=== PATIENT | male | born 1980 | race Caucasian/White ===

== ENCOUNTER 2024-02-23 20:16 | Observation (INO) ==
[2024-02-23 20:28] VITALS: BMI 30.4
--- NOTE | 2024-02-23 22:30 | DR.ABDMALE ---
HPI Time seen Time Seen by Provider: 02/23/24 22:29 PCP Primary Care Physician: Breonna Cordova Complaint Chief Complaint Doctors Comments: Patient has had epigastric and periumbilical abdominal pain x 2days,abdl distention.Patient presents because with worsening pain and n/v yesterday. Patient denies:fever,hematemesis,hematochezia,weakness,dizziness,back pain.Patient's Last meal was at lunch today. Chief Complaint:: Patient ambulatory in er with complaints of abdominal pain that started yesterday. Pt localizes pain to mid epigastric region. pt states he had 1 episode of nausea yesterday but denies vomiting. COVID-19 Coronavirus risk:travel/contact w/high risk person: No Has patient experienced Coronavirus symptoms: No Mode of arrival Mode of Arrival: Ambulatory Timing Onset of Chief Complaint: 02/22/24 PMH PMH Past Medical History: Yes Past Medical History: GERD, Hypertension and Kidney Stones Past Medical History Comment: ADHD Past Surgical History: No Family History History of Family Medical Conditions: Yes Family Medical History: Diabetes Mellitus and Hypertension Social History Does patient currently use any type of tobacco product: No Have you used tobacco products in the last 12 months: No Type of Tobacco Use: None Does any household member use tobacco: No Alcohol Use: Occasionally Do you use any recreational Drugs:: No Lives With: Family Lives Where: Home Travel Risk Coronavirus risk:travel/contact w/high risk person: No Has patient experienced Coronavirus symptoms: No Infectious screening Have you traveled outside the country in the last 6 months?: No Isolation: Standard ROS Review of Systems Constitutional: No Symptoms Reported Eyes: No Symptoms Reported ENTM: No Symptoms Reported Respiratoy: No Symptoms Reported Cardiovascular: No Symptoms Reported Gastrointestinal/Abdominal: Abdominal Pain (epigastric,periumbilical), Nausea and Vomiting Genitourinary: No Symptoms Reported Neurological: No Symptoms Reported Musculoskeletal: No Symptoms Reported Integumentary: No Symptoms Reported Hematologic/Lymphatic: No Symptoms Reported Endocrine: No Symptoms Reported Psychiatric: No Symptoms Reported All Other Systems: Reviewed and Negative PE Vital Signs Vital Signs: Temp Pulse Pulse Resp BP BP Pulse Ox 02/24/24 00:14 79 20 133/83 99 02/23/24 22:49 19 02/23/24 20:20 98.5 F 83 19 114/77 96 O2 Del Method 02/24/24 00:14 Room Air 02/23/24 22:49 02/23/24 20:20 Room Air General Limitations: No Limitations General Appearance: Alert and In No Apparent Distress Head Head Exam: Normal Inspection Eyes Eye exam: Normal Appearance ENT ENT Exam: Normal Exam Neck Neck Exam: Normal Inspection Chest Chest Inspection: Normal Inspection Respiratory Respiratory Exam: Normal Lung Sounds Bilat Respiratory Exam: Bilateral: Clear to Auscultation Cardiovascular Cardiovascular Exam: Regular Rate and Normal Rhythm Abdominal Exam Abdominal Exam: Distention, Guarding and Hypoactive Bowel Sounds Abdominal Tenderness: Epigastrium, Diffuse and Severe Rectal Rectal Exam: Deferred Back Back Exam: Normal Inspection Extremeties Extremities Exam: Normal Inspection Exam: Male: Deferred Neurologic Neurological Exam: Alert and Oriented X3 Psychiatric Psychiatric Exam: Normal Affect and Normal Mood Skin Skin Exam: Warm, Dry, Intact and Normal Color MDM Differential Diagnosis Differential Diagnosis: Appendicitis, Bowel Obstruction, Cholcystitis, Cholele thiasis, Diverticular disease, Inflammatory BD, Ischemic Bowel and Urinary tract infection COURSE Treatment Treatment: Patient has a partial small bowel obstruction per the radiologist.Iv access was intiated and Patient received Ns 1liter iv and morphine 2mg iv/zofran 4mg iv for pain. Patient has a wbc 14.9 and Patient will be given Zosyn 3.375g iv. Discussed case with Dr Martins who has accepted Patient to his service. Dr Mantilla will be consulted. ROR Labs Reviewed 02/23/24 22:50 02/23/24 22:50 Laboratory: WBC 14.9 X10^3/uL (3.6-10.0) H 02/23/24 22:50 RBC 5.06 X10^6/uL (4.7-6.0) 02/23/24 22:50 Hgb 15.2 g/dL (13.5-18.0) 02/23/24 22:50 Hct 45.2 % (42.0-54.0) 02/23/24 22:50 MCV 89.4 fL (80.0-100.0) 02/23/24 22:50 MCH 30.0 pg (27.0-34.0) 02/23/24 22:50 MCHC 33.6 g/dL (33.0-35.0) 02/23/24 22:50 RDW 14.9 % (11.6-16.5) 02/23/24 22:50 Plt Count 278 X10^3/uL (150.0-450.0) 02/23/24 22:50 MPV 8.2 fL (7.4-11.0) 02/23/24 22:50 Neut % (Auto) 78.4 % (42.0-75.0) H 02/23/24 22:50 Lymph % (Auto) 11.8 % (21.0-51.0) L 02/23/24 22:50 [place] % (Auto) 6.4 % (0.0-13.0) 02/23/24 22:50 Eos % (Auto) 3.1 % (0.9-2.9) H 02/23/24 22:50 Baso % (Auto) 0.3 % (0.2-1.0) 02/23/24 22:50 Neut # (Auto) 11.7 x10^3/uL (2.2-4.8) H 02/23/24 22:50 Lymph # (Auto) 1.8 X10^3/uL (1.3-2.9) 02/23/24 22:50 [place] # (Auto) 1.0 x10^3/uL (0.3-0.8) H 02/23/24 22:50 Eos # (Auto) 0.5 x10^3/uL (0.0-0.2) H 02/23/24 22:50 Baso # (Auto) 0.1 X10^3/uL (0.0-0.1) 02/23/24 22:50 Absolute Nucleated RBC 0.0 /100WBC 02/23/24 22:50 Sodium 134 mmol/L (136-145) L 02/23/24 22:50 Corrected Sodium TNP 02/23/24 22:50 Potassium 3.8 mmol/L (3.5-5.1) 02/23/24 22:50 Chloride 99 mmol/L (98-107) 02/23/24 22:50 Carbon Dioxide 30.6 mmol/L (21-32) 02/23/24 22:50 BUN 15 mg/dL (7-18) 02/23/24 22:50 Creatinine 1.35 mg/dL (0.70-1.30) H 02/23/24 22:50 Est GFR (MDRD) Af Amer > 60 (>60) 02/23/24 22:50 Est GFR (MDRD) Non-Af > 60 (>60) 02/23/24 22:50 Glucose 100 mg/dL (65-99) H 02/23/24 22:50 Lactic Acid 0.8 mmol/L (0.4-2.0) 02/23/24 22:59 Calcium 8.4 mg/dL (8.5-10.1) L 02/23/24 22:50 Corrected Calcium TNP 02/23/24 22:50 Total Bilirubin 0.80 mg/dL (0.2-1.0) 02/23/24 22:50 AST 16 Units/L (15-37) 02/23/24 22:50 ALT 34 Units/L (12-78) 02/23/24 22:50 Alkaline Phosphatase 84 Units/L (46-116) 02/23/24 22:50 Total Protein 7.3 g/dL (6.4-8.2) 02/23/24 22:50 Albumin 3.7 g/dL (3.4-5.0) 02/23/24 22:50 Globulin 3.6 g/dL (2.5-4.5) 02/23/24 22:50 Albumin/Globulin Ratio 1.0 Ratio (1.1-2.1) L 02/23/24 22:50 Amylase 48 Units/L (25-115) 02/23/24 22:50 Lipase 44 Units/L (16-77) 02/23/24 22:50 Specimen Type Clean catch urine 02/23/24 23:41 Urine Color Yellow (YELLOW) 02/23/24 23:41 Urine Appearance Clear (CLEAR) 02/23/24 23:41 Urine pH 6.0 (5.0 - 8.0) 02/23/24 23:41 Ur Specific [place] 1.025 (1.000-1.030) 02/23/24 23:41 Urine Protein 1+ (NEGATIVE) 02/23/24 23:41 Urine Glucose (UA) Negative (NEGATIVE) 02/23/24 23:41 Urine Ketones Negative (NEGATIVE) 02/23/24 23:41 Urine Blood Negative (NEGATIVE) 02/23/24 23:41 Urine Nitrite Negative (NEGATIVE) 02/23/24 23:41 Urine Bilirubin Negative (NEGATIVE) 02/23/24 23:41 Urine Urobilinogen Normal (NORMAL) 02/23/24 23:41 Ur Leukocyte Esterase Negative (NEGATIVE) 02/23/24 23:41 Urine RBC 0-2 /HPF (0-3) 02/23/24 23:41 Urine WBC 0-2 /HPF (0-5) 02/23/24 23:41 Ur Squamous Epith Cells Negative /HPF (NEGATIVE) 02/23/24 23:41 Urine Bacteria Negative /HPF (NEGATIVE) 02/23/24 23:41 Ur Culture Indicated? No/not indicated 02/23/24 23:41 Opioid Opioid Risk Tool Age (Tad box if 16-45): Yes History of Preadolescent Sexual Abuse: No Total: 1 Total Score Risk Category: Low Risk Copyright: Linwood LÓPEZ predicting aberrant behaviors Discharge Plan Diagnosis Discharge Problem: Partial small bowel obstruction Discharge Plan Patient Disposition: ADMITTED INPATIENT Condition: Stable Prescriptions: No Action famotidine 40 mg tablet 40 mg PO BID tamsulosin 0.4 mg capsule 0.4 mg PO QDAY dextroamphetamine-amphetamine 20 mg tablet 20 mg PO BID losartan 100 mg tablet 100 mg PO QDAY carisoprodol [Soma] 350 mg tablet 350 mg PO BID MDD 2 Qty: 10 0RF ibuprofen 800 mg tablet 800 mg PO TID MDD 3 PRN (Reason: pain) Qty: 20 0RF Health Concerns: Post Hospitalization: new medications and changes needed to prevent readmission or further decline. Pt educated and given instructions on all concerns. Plan of Treatment: Continue with present treatment and follow up plan. Pt is to keep follow up appointment as instructed and take medications as ordered. Orders to Discharge Patient Discharge Orders: Transfer (Routine); Ordered 02/24/24 Ordered By: Brisa Marte Follow ups/Referrals Follow ups/Referrals: KYLE CORDOVA [Primary Care Provider] - 3 days Instructions Stand Alone Forms: Post Hospital Follow Up Care
[2024-02-23] MEDS: ZOFRAN INJ 4 MG VIAL IVP ONE (22:48)
[2024-02-23] MEDS: NS 1,000 ML IV 1,000 ML IV ONE (22:48)
[2024-02-23] MEDS: MORPHINE SULFATE INJ 2 MG INJ IVP ONE (22:49)
[2024-02-23 23:00] LABS: BASOPHILS # (AUTO) 0.1 X10^3/uL (0.0-0.1); HEMOGLOBIN 15.2 g/dL (13.5-18.0)
[2024-02-23 23:03] LABS: BASOPHILS % (AUTO) 0.3 % (0.2-1.0); EOSINOPHILS # (AUTO) 0.5 x10^3/uL (0.0-0.2); EOSINOPHILS % (AUTO) 3.1 % (0.9-2.9); HEMATOCRIT 45.2 % (42.0-54.0); LYMPHOCYTES # (AUTO) 1.8 X10^3/uL (1.3-2.9); LYMPHOCYTES % (AUTO) 11.8 % (21.0-51.0); MEAN CORPUSCULAR HGB CONC 33.6 g/dL (33.0-35.0); MEAN CORPUSCULAR VOLUME 89.4 fL (80.0-100.0); MEAN PLATELET VOLUME 8.2 fL (7.4-11.0); MONOCYTES % (AUTO) 6.4 % (0.0-13.0); NEUTROPHILS # (AUTO) 11.7 x10^3/uL (2.2-4.8); NEUTROPHILS % (AUTO) 78.4 % (42.0-75.0); PLATELET COUNT 278 X10^3/uL (150.0-450.0); RED BLOOD COUNT 5.06 X10^6/uL (4.7-6.0); RED CELL DISTRIBUTION WIDTH 14.9 % (11.6-16.5); WHITE BLOOD COUNT 14.9 X10^3/uL (3.6-10.0)
[2024-02-23 23:11] LABS: ALANINE AMINOTRANSFERASE 34 Units/L (12-78); ALBUMIN 3.7 g/dL (3.4-5.0); ALKALINE PHOSPHATASE 84 Units/L (46-116); AMYLASE 48 Units/L (25-115); ASPARTATE AMINO TRANSFERASE 16 Units/L (15-37); BLOOD UREA NITROGEN 15 mg/dL (7-18); CALCIUM 8.4 mg/dL (8.5-10.1); CARBON DIOXIDE 30.6 mmol/L (21-32); CHLORIDE 99 mmol/L (98-107); CREATININE 1.35 mg/dL (0.70-1.30); GLUCOSE 100 mg/dL (65-99); LIPASE 44 Units/L (16-77); POTASSIUM 3.8 mmol/L (3.5-5.1); SODIUM 134 mmol/L (136-145); TOTAL PROTEIN 7.3 g/dL (6.4-8.2); eGFR NON BLACK RACES > 60 (>60)
[2024-02-23 23:53] LABS: BILIRUBIN,URINE NEGATIVE (NEGATIVE); BLOOD/HEMOGLOBIN,URINE NEGATIVE (NEGATIVE); GLUCOSE, URINE NEGATIVE (NEGATIVE); KETONES,URINE NEGATIVE (NEGATIVE); LEUKOCYTE ESTERASE ,URINE NEGATIVE (NEGATIVE); NITRITES,URINE NEGATIVE (NEGATIVE); PROTEIN,URINE 1+ (NEGATIVE); UROBILINOGEN,URINE NORMAL (NORMAL)
--- NOTE | 2024-02-24 | CT ---
EXAM: CT ABDOMEN AND PELVIS WITH CONTRAST HISTORY: abdominal pain that started yesterday. Pt localizes pain to mid epigastric region. pt states he had 1 episode of nausea yesterday but denies vomiting.; HTN, GERD, KIDNEY STONES, ADHD COMPARISON: 02/09/2021 TECHNIQUE: Axial images were acquired of the abdomen and pelvis with IV contrast. Sagittal and coronal reformatt ed images were provided. All images were reviewed in a variety of windows and levels. RADIATION REDUCTION TECHNIQUE: Automated exposure control, adjustment of the mA and/or kV according t o patient size, or iterative reconstruction techniques were used. FINDINGS: LOWER THORAX: The visualized lower lung zones are clear. The heart size is within normal limits. Ther e is no evidence of a pericardial effusion. LIVER: No intrahepatic focal lesions are seen. No evidence of intrahepatic or extrahepatic duct dilat ion. GALLBLADDER: The gallbladder is unremarkable. SPLEEN: The spleen enhances homogenously and is unremarkable. PANCREAS: The pancreas enhances homogenously and is unremarkable. ADRENAL GLANDS: The adrenal glands enhance homogenously and are unremarkable. : The kidneys enhance homogenously. Their collecting system is of normal caliber. URINARY BLADDER: The urinary bladder is unremarkable. There are no soft tissue masses seen in the uri nary bladder. VESSELS: The abdominal aorta is normal in size without evidence of aneurysm or dissection. The celiac artery, superior mesenteric artery, lower [place] renal arteries, and inferior mesenteric artery are patent . GI: There are several moderately dilated loops of small bowel with air-fluid levels. The distal smal l bowel is normal in caliber. There are no inflammatory changes seen in the right lower quadrant to suggest secondary signs of acute appendicitis. Normal appendix right lower quadrant. LYMPHNODES AND MESENTERY: There is no evidence of retroperitoneal lymphadenopathy. BONES: The visualized bones are intact. There are no concerning lytic or blastic lesions identified. IMPRESSION: Several moderately dilated loops of small bowel with air-fluid levels suggesting early or partial obs truction. THIS IS AN ELECTRONICALLY VERIFIED FINAL REPORT 02/23/2024 11:57 PM - Electronically signed by Elliot Rivera MD
[2024-02-24 00:01] LABS: APPEARANCE,URINE CLEAR (CLEAR); COLOR,URINE YELLOW (YELLOW)
[2024-02-24 00:03] LABS: BACTERIA,URINE NEGATIVE /HPF (NEGATIVE); RBC,URINE 0-2 /HPF (0-3); SQUAMOUS EPITHELIAL CELL,UR NEGATIVE /HPF (NEGATIVE)
[2024-02-24] MEDS: ZOSYN VIAL 3.375 GRAMS 3.375 G in NS 100 ML IV 100 ML IV ONE (00:23)
[2024-02-24] MEDS ORDERED: CONSULT PHARMACY - POTASSIUM & MAGNESIUM XX SCH (01:19)
[2024-02-24] MEDS: MAGNESIUM SULFATE 1 GRAM/100 mL PREMIX 0 G/0 ML BAG IV ONE (01:22)
[2024-02-24] MEDS: OMNIPAQUE 350 mg/mL 100 mL BTL 100 ML ONE (01:23)
[2024-02-24] MEDS: NS 100 ML IV 100 ML ONE ×2 (01:23)
[2024-02-24] MEDS: ZOSYN VIAL 3.375 GRAMS IV ONE (01:23)
[2024-02-24] MEDS: LR 1,000 ML IV 1,000 ML IV SCH (02:02)
[2024-02-24] MEDS: PEPCID 20 MG VIAL 20 MG in NS 50 ML IV 50 ML IV SCH (02:02)
[2024-02-24] MEDS: K-RIDER 10 MEQ/100 ML WATER 10 MEQ/100 ML BAG IV SCH (02:16)
[2024-02-24 05:37] LABS: BASOPHILS % (AUTO) 0.3 % (0.2-1.0); EOSINOPHILS # (AUTO) 0.5 x10^3/uL (0.0-0.2); EOSINOPHILS % (AUTO) 4.9 % (0.9-2.9); HEMATOCRIT 41.1 % (42.0-54.0); HEMOGLOBIN 13.9 g/dL (13.5-18.0); LYMPHOCYTES # (AUTO) 2.5 X10^3/uL (1.3-2.9); MEAN CORPUSCULAR HEMOGLOBIN 30.2 pg (27.0-34.0); MEAN CORPUSCULAR HGB CONC 33.8 g/dL (33.0-35.0); MEAN CORPUSCULAR VOLUME 89.3 fL (80.0-100.0); MEAN PLATELET VOLUME 8.4 fL (7.4-11.0); MONOCYTES # (AUTO) 0.9 x10^3/uL (0.3-0.8); MONOCYTES % (AUTO) 8.3 % (0.0-13.0); NEUTROPHILS # (AUTO) 6.5 x10^3/uL (2.2-4.8); NEUTROPHILS % (AUTO) 62.5 % (42.0-75.0); PLATELET COUNT 242 X10^3/uL (150.0-450.0); WHITE BLOOD COUNT 10.4 X10^3/uL (3.6-10.0)
[2024-02-24 05:49] LABS: BLOOD UREA NITROGEN 13 mg/dL (7-18); CARBON DIOXIDE 29.1 mmol/L (21-32); CHLORIDE 102 mmol/L (98-107); CREATININE 1.22 mg/dL (0.70-1.30); GLUCOSE 93 mg/dL (65-99); POTASSIUM 4.3 mmol/L (3.5-5.1); SODIUM 135 mmol/L (136-145); eGFR NON BLACK RACES > 60 (>60)
[2024-02-24 06:04] LABS: ALANINE AMINOTRANSFERASE 27 Units/L (12-78); ALBUMIN 3.1 g/dL (3.4-5.0); ALKALINE PHOSPHATASE 69 Units/L (46-116); ASPARTATE AMINO TRANSFERASE 15 Units/L (15-37); TOTAL PROTEIN 6.2 g/dL (6.4-8.2)
[2024-02-24 06:05] LABS: COR CA(FOR HYPOALB) 8.7 mg/dL (8.5-10.1)
[2024-02-24] MEDS ORDERED: PATIENT'S HOME MEDICATION (Dextroamphetamine-Amphetamine 20 mg tablet) PO SCH (09:00)
[2024-02-24] MEDS: COZAAR PO SCH (09:16)
[2024-02-24] MEDS: FLOMAX PO SCH (09:16)
[2024-02-24] MEDS: SOMA TAB 350 MG PO SCH (09:16)
[2024-02-24] MEDS: ZOSYN VIAL 3.375 GRAMS 3.375 G in NS 100 ML IV 100 ML IV SCH (10:37)
--- NOTE | 2024-02-24 11:33 | DR.H&P ---
H&P History & Physical for Day of: H&P Date: 02/24/24 Chief Complaint Chief Complaint: abdominal pain History of Present Illness History of Present Illness: Patient is a 43-year-old male presenting with abdominal pain that started yesterday and got progressively worse. He reports that he still was having bowel movements and passing gas. He went to the ED to be evaluated. Labs/imaging: WBC 14.910.4, hemoglobin 13.9, platelets 242, sodium 135, potassium 4.3, creatinine 1.22, glucose 93, UA negative, CT abdomen pelvis was obtained that revealed an early partial small bowel obstruction. Patient was admitted for possible small bowel obstruction. He will be kept n.p.o. General SurgeryDr. Al was consulted. Will continue with IV fluids LR at 80 mL/h. Will order IV antibiotics Zosyn. Patient will have a KUB today. Otherwise, we will continue with current treatment plan. Restart home medications when appropriate. Continue closely monitor and follow-up labs/imaging. Past Medical History Past Medical History: GERD, Hypertension and Kidney Stones Past Surgical History Surgical History: No History Family History Family Medical History: Diabetes Mellitus and Hypertension Social History Does patient currently use any type of tobacco product: No Have you used tobacco products in the last 12 months: No Type of Tobacco Use: None Does any household member use tobacco: No Alcohol Use: Occasionally Drug Use: None Medications Home Medications: Home Medications Medication Instructions Recorded Confirmed Type codeine 10 mg-guaifenesin 100 mg/5 10 ml PO PRN PRN 02/24/24 02/24/24 History mL oral liquid dextroamphetamine-amphetamine 20 1 tab PO BID 02/24/24 02/24/24 History mg tablet famotidine 40 mg tablet 40 mg PO BID 02/24/24 02/24/24 History ketoconazole 2 % topical cream 1 applic topical 1-2XD 02/24/24 02/24/24 History levofloxacin 500 mg tablet 500 mg PO QDAY 02/24/24 02/24/24 History losartan 100 mg tablet 100 mg PO QDAY 02/24/24 02/24/24 History methylprednisolone 4 mg tablets in 4 mg PO USEASDIRECTD 02/24/24 02/24/24 History a dose pack scopolamine base 1 mg over 3 days 1 patch transdermal Q3-4D 02/24/24 02/24/24 History transdermal patch tamsulosin 0.4 mg capsule 0.4 mg PO QDAY 02/24/24 02/24/24 History terbinafine HCl 250 mg tablet 250 mg PO QDAY 02/24/24 02/24/24 History Allergies Allergies Allergy/AdvReac Type Severity Reaction Status Date / Time No Known Drug Allergies Allergy Unknown Verified 02/24/24 01:19 Labs 02/24/24 04:56 02/24/24 04:56 Labs: Laboratory WBC 10.4 X10^3/uL (3.6-10.0) H 02/24/24 04:56 RBC 4.60 X10^6/uL (4.7-6.0) L 02/24/24 04:56 Hgb 13.9 g/dL (13.5-18.0) 02/24/24 04:56 Hct 41.1 % (42.0-54.0) L 02/24/24 04:56 MCV 89.3 fL (80.0-100.0) 02/24/24 04:56 MCH 30.2 pg (27.0-34.0) 02/24/24 04:56 MCHC 33.8 g/dL (33.0-35.0) 02/24/24 04:56 RDW 15.0 % (11.6-16.5) 02/24/24 04:56 Plt Count 242 X10^3/uL (150.0-450.0) 02/24/24 04:56 MPV 8.4 fL (7.4-11.0) 02/24/24 04:56 Neut % (Auto) 62.5 % (42.0-75.0) 02/24/24 04:56 Lymph % (Auto) 24.0 % (21.0-51.0) 02/24/24 04:56 [place] % (Auto) 8.3 % (0.0-13.0) 02/24/24 04:56 Eos % (Auto) 4.9 % (0.9-2.9) H 02/24/24 04:56 Baso % (Auto) 0.3 % (0.2-1.0) 02/24/24 04:56 Neut # (Auto) 6.5 x10^3/uL (2.2-4.8) H 02/24/24 04:56 Lymph # (Auto) 2.5 X10^3/uL (1.3-2.9) 02/24/24 04:56 [place] # (Auto) 0.9 x10^3/uL (0.3-0.8) H 02/24/24 04:56 Eos # (Auto) 0.5 x10^3/uL (0.0-0.2) H 02/24/24 04:56 Baso # (Auto) 0.0 X10^3/uL (0.0-0.1) 02/24/24 04:56 Absolute Nucleated RBC 0.2 /100WBC 02/24/24 04:56 Sodium 135 mmol/L (136-145) L 02/24/24 04:56 Corrected Sodium TNP 02/24/24 04:56 Potassium 4.3 mmol/L (3.5-5.1) 02/24/24 04:56 Chloride 102 mmol/L (98-107) 02/24/24 04:56 Carbon Dioxide 29.1 mmol/L (21-32) 02/24/24 04:56 BUN 13 mg/dL (7-18) 02/24/24 04:56 Creatinine 1.22 mg/dL (0.70-1.30) 02/24/24 04:56 Est GFR (MDRD) Af Amer > 60 (>60) 02/24/24 04:56 Est GFR (MDRD) Non-Af > 60 (>60) 02/24/24 04:56 Glucose 93 mg/dL (65-99) 02/24/24 04:56 Lactic Acid 0.8 mmol/L (0.4-2.0) 02/23/24 22:59 Calcium 8.0 mg/dL (8.5-10.1) L 02/24/24 04:56 Corrected Calcium 8.7 mg/dL (8.5-10.1) 02/24/24 04:56 Magnesium 2.0 mg/dL (2.0-2.9) 02/23/24 22:50 Total Bilirubin 0.70 mg/dL (0.2-1.0) 02/24/24 04:56 AST 15 Units/L (15-37) 02/24/24 04:56 ALT 27 Units/L (12-78) 02/24/24 04:56 Alkaline Phosphatase 69 Units/L (46-116) 02/24/24 04:56 Total Protein 6.2 g/dL (6.4-8.2) L 02/24/24 04:56 Albumin 3.1 g/dL (3.4-5.0) L 02/24/24 04:56 Globulin 3.1 g/dL (2.5-4.5) 02/24/24 04:56 Albumin/Globulin Ratio 1.0 Ratio (1.1-2.1) L 02/24/24 04:56 Amylase 48 Units/L (25-115) 02/23/24 22:50 Lipase 44 Units/L (16-77) 02/23/24 22:50 Specimen Type Clean catch urine 02/23/24 23:41 Urine Color Yellow (YELLOW) 02/23/24 23:41 Urine Appearance Clear (CLEAR) 02/23/24 23:41 Urine pH 6.0 (5.0 - 8.0) 02/23/24 23:41 Ur Specific [place] 1.025 (1.000-1.030) 02/23/24 23:41 Urine Protein 1+ (NEGATIVE) 02/23/24 23:41 Urine Glucose (UA) Negative (NEGATIVE) 02/23/24 23:41 Urine Ketones Negative (NEGATIVE) 02/23/24 23:41 Urine Blood Negative (NEGATIVE) 02/23/24 23:41 Urine Nitrite Negative (NEGATIVE) 02/23/24 23:41 Urine Bilirubin Negative (NEGATIVE) 02/23/24 23:41 Urine Urobilinogen Normal (NORMAL) 02/23/24 23:41 Ur Leukocyte Esterase Negative (NEGATIVE) 02/23/24 23:41 Urine RBC 0-2 /HPF (0-3) 02/23/24 23:41 Urine WBC 0-2 /HPF (0-5) 02/23/24 23:41 Ur Squamous Epith Cells Negative /HPF (NEGATIVE) 02/23/24 23:41 Urine Bacteria Negative /HPF (NEGATIVE) 02/23/24 23:41 Ur Culture Indicated? No/not indicated 02/23/24 23:41 Review of Systems Constitutional: No Symptoms Reported Eyes: No Symptoms Reported ENT: No Symptoms Reported Respiratory: No Symptoms Reported Cardiovascular: No Symptoms Reported Gastrointestinal: Abdominal Pain Genitourinary: No Symptoms Reported Musculoskeletal: No Symptoms Reported Skin: No Symptoms Reported Neurological: No Symptoms Reported Physical Exam Vital Signs: Vital Signs Temperature 97.6 F Pulse Rate 61 Pulse Rate 67 Pulse Rate 72 Pulse Rate 68 Pulse Rate 62 Pulse Rate 58 Pulse Rate 60 Pulse Rate 56 Respiratory Rate 16 Respiratory Rate 17 Respiratory Rate 18 Respiratory Rate 13 Respiratory Rate 15 Respiratory Rate 17 Respiratory Rate 19 Respiratory Rate 15 Blood Pressure 122/75 Blood Pressure 120/65 Blood Pressure 110/55 Blood Pressure 109/55 Blood Pressure 114/67 Blood Pressure 137/71 Blood Pressure 133/81 O2 Sat by Pulse Oximetry 96 O2 Sat by Pulse Oximetry 96 O2 Sat by Pulse Oximetry 95 O2 Sat by Pulse Oximetry 94 O2 Sat by Pulse Oximetry 98 O2 Sat by Pulse Oximetry 98 O2 Sat by Pulse Oximetry 98 Oriented: Normal Eyes: Normal Ear: Normal Nose: Normal Throat: Normal Respiratory: Clear Throughout Cardiovascular: Normal : Normal Auscultation: Bowel Sounds: Normal Palpation: Normal Tenderness: Epigastric Skin: Normal Musculoskeletal: Normal Psychiatric: Normal Mood Description: Calm and Appropriate Affect: Normal Speech Pattern: Clear and Appropriate Assessment/Plan (1) Partial small bowel obstruction: Status: Acute Plan: NPO, IVF General surgery consulted-Dr Mantilla Review H&P Reviewed: Yes Patient was examined?: Yes
[2024-02-24] MEDS: ZOFRAN INJ 4 MG VIAL IVP PRN (13:53)
[2024-02-24] MEDS: NS 250 ML IV 25 ML IV PRN (13:53)
[2024-02-24] MEDS: MORPHINE SULFATE INJ 2 MG INJ IVP PRN (13:54)
--- NOTE | 2024-02-24 16:29 | RAD ---
EXAM:KUB x-ray one viewHISTORY:PARTIAL BOWEL obstruction-COMPARISON:CT 02/23/2024FINDINGS:There is persistent dilation of small bowel loops in the left side of the abdomen with air. These measure up to 4.1 cm in diameter. This may be due to small bowel obstruction. There is mild air in the right side of the colon.IMPRESSION:Persistent small bowel dilation is concerning for small bowel obstruction.THIS IS AN ELECTRONICALLY VERIFIED FINAL REPORT02/24/2024 4:26 PM - Electronically signed by Jaxson Schmidt MD
[2024-02-25 05:09] LABS: BASOPHILS % (AUTO) 0.3 % (0.2-1.0); EOSINOPHILS # (AUTO) 0.5 x10^3/uL (0.0-0.2); EOSINOPHILS % (AUTO) 7.1 % (0.9-2.9); HEMATOCRIT 42.4 % (42.0-54.0); HEMOGLOBIN 14.1 g/dL (13.5-18.0); LYMPHOCYTES # (AUTO) 2.6 X10^3/uL (1.3-2.9); LYMPHOCYTES % (AUTO) 36.4 % (21.0-51.0); MEAN CORPUSCULAR HEMOGLOBIN 29.9 pg (27.0-34.0); MEAN CORPUSCULAR HGB CONC 33.2 g/dL (33.0-35.0); MEAN PLATELET VOLUME 8.5 fL (7.4-11.0); MONOCYTES # (AUTO) 0.5 x10^3/uL (0.3-0.8); MONOCYTES % (AUTO) 7.4 % (0.0-13.0); NEUTROPHILS # (AUTO) 3.5 x10^3/uL (2.2-4.8); NEUTROPHILS % (AUTO) 48.8 % (42.0-75.0); PLATELET COUNT 251 X10^3/uL (150.0-450.0); RED BLOOD COUNT 4.71 X10^6/uL (4.7-6.0); RED CELL DISTRIBUTION WIDTH 14.8 % (11.6-16.5); WHITE BLOOD COUNT 7.2 X10^3/uL (3.6-10.0)
[2024-02-25 05:28] LABS: ALANINE AMINOTRANSFERASE 29 Units/L (12-78); ALKALINE PHOSPHATASE 66 Units/L (46-116); ASPARTATE AMINO TRANSFERASE 13 Units/L (15-37); BLOOD UREA NITROGEN 9 mg/dL (7-18); CALCIUM 8.4 mg/dL (8.5-10.1); CARBON DIOXIDE 29.6 mmol/L (21-32); CHLORIDE 103 mmol/L (98-107); COR CA(FOR HYPOALB) 9.2 mg/dL (8.5-10.1); CREATININE 1.36 mg/dL (0.70-1.30); GLUCOSE 91 mg/dL (65-99); POTASSIUM 4.4 mmol/L (3.5-5.1); SODIUM 139 mmol/L (136-145); TOTAL PROTEIN 6.3 g/dL (6.4-8.2); eGFR NON BLACK RACES > 60 (>60)
[2024-02-25] MEDS: TYLENOL 325 MG TAB PO PRN (10:38)
[2024-02-25 13:15] VITALS: BP 131/86; PULSE 70; TEMP 98; O2SAT 98
[2024-02-25 13:18] VITALS: RESP 18
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
--- NOTE | 2024-02-29 09:21 | PCM.PROG ---
Progress Note Progress Note for Day of Date of Exam: 02/25/24 Subjective Subjective: Pt is a 43 year old male admitted after complaining of abdominal pain and CT scan was consistent with possible partial small bowel obstruction. He was observed and kept on a clear diet. His pain is now resolved and he has been advanced to a regular diet and tolerating it well with good bowel movements and passing of flatus . He was discharged after evaluation by General Surgery. Continue all of his home medications. He will follow up with Dr Mantilla in 1 to 2 weeks. Past Medical Family Social History Allergies: Allergies No Known Drug Allergies Allergy (Unknown, Verified 02/24/24 01:19) Onset Date: 04/06/2022 Review of Systems ROS changes noted: see HPI Physical Exam Oriented: Normal Eyes: Normal Ear: Normal Nose: Normal Throat: Normal Cardiovascular: Normal : Normal Auscultation: Bowel Sounds: Normal Tenderness: Normal Skin: Normal Musculoskeletal: Normal Psychiatric: Normal Mood Description: Calm and Appropriate Affect: Normal Speech Pattern: Clear and Appropriate Laboratory and Diagnostics 02/25/24 04:31 02/25/24 04:31 Labs: Laboratory WBC 7.2 X10^3/uL (3.6-10.0) 02/25/24 04:31 RBC 4.71 X10^6/uL (4.7-6.0) 02/25/24 04:31 Hgb 14.1 g/dL (13.5-18.0) 02/25/24 04:31 Hct 42.4 % (42.0-54.0) 02/25/24 04:31 MCV 90.0 fL (80.0-100.0) 02/25/24 04:31 MCH 29.9 pg (27.0-34.0) 02/25/24 04:31 MCHC 33.2 g/dL (33.0-35.0) 02/25/24 04:31 RDW 14.8 % (11.6-16.5) 02/25/24 04:31 Plt Count 251 X10^3/uL (150.0-450.0) 02/25/24 04:31 MPV 8.5 fL (7.4-11.0) 02/25/24 04:31 Neut % (Auto) 48.8 % (42.0-75.0) 02/25/24 04:31 Lymph % (Auto) 36.4 % (21.0-51.0) 02/25/24 04:31 [place] % (Auto) 7.4 % (0.0-13.0) 02/25/24 04:31 Eos % (Auto) 7.1 % (0.9-2.9) H 02/25/24 04:31 Baso % (Auto) 0.3 % (0.2-1.0) 02/25/24 04:31 Neut # (Auto) 3.5 x10^3/uL (2.2-4.8) 02/25/24 04:31 Lymph # (Auto) 2.6 X10^3/uL (1.3-2.9) 02/25/24 04:31 [place] # (Auto) 0.5 x10^3/uL (0.3-0.8) 02/25/24 04:31 Eos # (Auto) 0.5 x10^3/uL (0.0-0.2) H 02/25/24 04:31 Baso # (Auto) 0.0 X10^3/uL (0.0-0.1) 02/25/24 04:31 Absolute Nucleated RBC 0.1 /100WBC 02/25/24 04:31 Sodium 139 mmol/L (136-145) 02/25/24 04:31 Corrected Sodium TNP 02/25/24 04:31 Potassium 4.4 mmol/L (3.5-5.1) 02/25/24 04:31 Chloride 103 mmol/L (98-107) 02/25/24 04:31 Carbon Dioxide 29.6 mmol/L (21-32) 02/25/24 04:31 BUN 9 mg/dL (7-18) 02/25/24 04:31 Creatinine 1.36 mg/dL (0.70-1.30) H 02/25/24 04:31 Est GFR (MDRD) Af Amer > 60 (>60) 02/25/24 04:31 Est GFR (MDRD) Non-Af > 60 (>60) 02/25/24 04:31 Glucose 91 mg/dL (65-99) 02/25/24 04:31 Lactic Acid 0.8 mmol/L (0.4-2.0) 02/23/24 22:59 Calcium 8.4 mg/dL (8.5-10.1) L 02/25/24 04:31 Corrected Calcium 9.2 mg/dL (8.5-10.1) 02/25/24 04:31 Magnesium 2.0 mg/dL (2.0-2.9) 02/23/24 22:50 Total Bilirubin 0.70 mg/dL (0.2-1.0) 02/25/24 04:31 AST 13 Units/L (15-37) L 02/25/24 04:31 ALT 29 Units/L (12-78) 02/25/24 04:31 Alkaline Phosphatase 66 Units/L (46-116) 02/25/24 04:31 Total Protein 6.3 g/dL (6.4-8.2) L 02/25/24 04:31 Albumin 3.0 g/dL (3.4-5.0) L 02/25/24 04:31 Globulin 3.3 g/dL (2.5-4.5) 02/25/24 04:31 Albumin/Globulin Ratio 0.9 Ratio (1.1-2.1) L 02/25/24 04:31 Amylase 48 Units/L (25-115) 02/23/24 22:50 Lipase 44 Units/L (16-77) 02/23/24 22:50 Specimen Type Clean catch urine 02/23/24 23:41 Urine Color Yellow (YELLOW) 02/23/24 23:41 Urine Appearance Clear (CLEAR) 02/23/24 23:41 Urine pH 6.0 (5.0 - 8.0) 02/23/24 23:41 Ur Specific [place] 1.025 (1.000-1.030) 02/23/24 23:41 Urine Protein 1+ (NEGATIVE) 02/23/24 23:41 Urine Glucose (UA) Negative (NEGATIVE) 02/23/24 23:41 Urine Ketones Negative (NEGATIVE) 02/23/24 23:41 Urine Blood Negative (NEGATIVE) 02/23/24 23:41 Urine Nitrite Negative (NEGATIVE) 02/23/24 23:41 Urine Bilirubin Negative (NEGATIVE) 02/23/24 23:41 Urine Urobilinogen Normal (NORMAL) 02/23/24 23:41 Ur Leukocyte Esterase Negative (NEGATIVE) 02/23/24 23:41 Urine RBC 0-2 /HPF (0-3) 02/23/24 23:41 Urine WBC 0-2 /HPF (0-5) 02/23/24 23:41 Ur Squamous Epith Cells Negative /HPF (NEGATIVE) 02/23/24 23:41 Urine Bacteria Negative /HPF (NEGATIVE) 02/23/24 23:41 Ur Culture Indicated? No/not indicated 02/23/24 23:41 Plan (1) Partial small bowel obstruction: Status: Acute Plan: IVF, CLD General surgery consulted-Dr Mantilla
== END 2024-02-25 13:45 | disposition home or self-care (01) ==
LOC: ER 20:16 → ICU 20:16
PROVIDERS: ADMIT Family Medicine; ATTEND Family Medicine